=== PATIENT | male | born 1975 | race Caucasian/White ===

== ENCOUNTER 2023-11-04 16:17 | Emergency (ER) | payer OTHER, SELFPAY ==
[2023-11-04 16:24] VITALS: BP 139/78; PULSE 80; RESP 16; TEMP 36.8; O2SAT 96; BMI 37.8
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
--- NOTE | 2023-11-04 16:32 | XRR_ITS ---
PROCEDURE INFORMATION: Exam: XR Chest Exam date and time: 11/04/2023 4:42 PM Age: 48 years old Clinical indication: Injury or trauma; Patient HX: Lt shoulder pain after being hit by log/10ft fall TECHNIQUE: Imaging protocol: Radiologic exam of the chest. Views: 1 view. COMPARISON: CR XR shoulder LT min 2V* [id number] 11/04/2023 4:42 PM FINDINGS: Lungs: Unremarkable. No consolidation. Pleural spaces: Unremarkable. No pleural effusion. No pneumothorax. Heart/Mediastinum: Unremarkable. No cardiomegaly. Bones/joints: Unremarkable. XR/XR chest 1V portable [id number] IMPRESSION: No acute findings.
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
[2023-11-04] MEDS: HYDROcodone-acetaminophen 5-325 mg Tablet 1 TAB PO (19:19)
[2023-11-04 19:21] VITALS: BP 153/93; PULSE 76; O2SAT 97
== END 2023-11-04 19:23 | disposition home or self-care (01) ==
PROVIDERS: Emergency Provider Nurse Practitioner Family
DX: S20.222A Contusion of left back wall of thorax, initial encounter (principal); Z87.891 Personal history of nicotine dependence; W20.8XXA Other cause of strike by thrown, projected or falling object, initial encounter
CPT/HCPCS: 71045; 73030; 99284